=== PATIENT | male | born 1955 | race Caucasian/White ===

== ENCOUNTER → 2017-06-19 | Outpatient (CLI) | payer OTHER ==
--- NOTE | 2017-06-19 15:22 | RAD ---
EXAM DESCRIPTION: Lumbar Spine 3 Views CLINICAL HISTORY: LOW BACK PAIN COMPARISON: MRI scan lumbar spine on the same visit. TECHNIQUE: AP, lateral radiographs of the entire lumbar spine. Spot-lateral radiograph of the lumbar sacral junction. FINDINGS: Lumbar type vertebra: 5. Transitional vertebrae: None. Disk spaces: Narrowing and endplate irregularities at L5-S1, L4-5, L3-4, and L1-2. Apparent disc calcification at L3-4. Endplate spurs at T12-L1 and L2-3. Facet joints: Bilateral facet arthrosis L5-S1. Compression deformities: None. Bone Density: Normal. Alignment: Trace retrolisthesis L3-4, decreased lordosis. Otherwise unremarkable. Abdomen: Nonspecific bowel gas pattern. IMPRESSION: Spondylosis at almost every level of the lumbar spine. Decreased lumbar lordosis. No compression type vertebral body fractures. Electronically signed by: Radames Parikh MD 06/19/2017 3:21 PM [facility]
--- NOTE | 2017-06-19 16:41 | MRI ---
EXAM DESCRIPTION: Lumbar Spine w/o Contrast MRI. CLINICAL HISTORY: LOW BACK PAIN COMPARISON: Lumbosacral radiographs on the same visit. TECHNIQUE: Multiplanar, multiple standard sequences, non contrast MRI, lumbar spine. FINDINGS: L5-S1: Trace retrolisthesis 2 mm with 3 mm bulge of the disc which is desiccated abutting the thecal sac. Bilateral subarticular recesses are patent with mild canal narrowing. Bilateral mild facet arthrosis and flavum ligament hypertrophy abutting the posterior thecal sac and the descending bilateral S1 nerve roots above the recess. Bilateral Modic type II endplate reactive changes. Disc osteophyte complex bilaterally encroaching on the foramina more on the left than the right with bilateral stenosis and probable impingement exiting L5 nerves. L4-5: Moderate loss of disc space with disc desiccation and anterior bulging and endplate ridging. Posterior broad-based 4 mm disc bulge abutting the thecal sac. Flavum ligament hypertrophy and facet arthrosis contributing to bilateral subarticular stenosis encroaching on the descending bilateral L5 nerve roots. AP canal diameter 8 mm. Left side Modic type II endplate reactive changes with disc spur complex encroaching on the left foramen and left L4 nerve root and borderline foraminal stenosis. Moderate to severe right foraminal narrowing. L3-4 disc space almost absent with anterior endplate ridging, almost forming a bridge. Posterior broad-based endplate spurs abutting the thecal sac. Posterior facet arthrosis and flavum ligament hypertrophy contributing to mild to moderate canal narrowing. Bilateral mild foraminal narrowing more right than left with right side Modic type II endplate reactive changes and disc spur complex abutting the exiting right L3 nerve. L2-3 disc desiccation minimal anterior bulge and endplate ridging. Posterior midline and left paracentral 7 mm protrusion and superior 14 mm extrusion. This is impinging the descending left L2 nerve above the left foramen. Disc also bulging into the foramen abutting the nerve. Bilateral moderate facet arthrosis and flavum ligament hypertrophy with central AP canal diameter 5 mm. Disc is abutting the bilateral descending L3 nerves above the subarticular recess; right recess stenosis. Right foramen patent. Well-circumscribed bright T1 and T2 signal in the superior lateral right L3 endplate. L1-2: Disc desiccation and moderate disc space loss. Posterior Modic type II endplate reactive changes superior L2 endplate. Posterior midline and right paracentral 6 mm protrusion of the disc encroaching on the thecal sac and the right subarticular recess, and the descending right S2 nerve. Midline AP canal diameter 6 mm. Facet arthrosis and ligament hypertrophy more on the left. Left foramen is patent. Right posterior Modic type II endplate reactive changes and inferior L1 Schmorl's node. Minimal disc-osteophyte bulge into the right foramen with minimal narrowing. T12-L1: Disc desiccation and posterior disc space loss. Posterior broad-based 4 mm disc bulge abutting the thecal sac and the conus which terminates at this level. Bilateral facet arthrosis and mild ligament hypertrophy contributing to mild to moderate canal stenosis. Mild bilateral foraminal narrowing more on the right than left. Focal bright T1 and T2 signal inferior left L1 endplate. Paravertebral soft tissues minimal muscle atrophy.. Normal marrow signal in the remaining vertebral bodies and the posterior elements. Vertebral bodies are not compressed at any level. IMPRESSION: 1. Multiple levels of spondylosis, facet arthrosis and posterior flavum ligament hypertrophy, disc desiccation bulging or herniated discs. 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 2. Moderate spondylosis L5-S1. Trace retrolisthesis. Bilateral discs spur complexes encroaching on the foramina with stenosis more left than right and bilateral L5 nerve impingement. 3. Posterior L4-5 broad-based disc bulge. Bilateral subarticular stenosis encroaching on the descending bilateral L5 nerve roots. Mild to moderate canal stenosis. Left side Disc spur complex encroaching on the foramen and left L4 nerve root. 4. Disc space almost absent at L3-4 with advanced spondylosis. Moderate right spondylosis encroaching on the foramen and abutting the exiting right L3 nerve. 5. Posterior midline and left paracentral L2-3 disc protrusion and superior extrusion encroaching on the descending left L2 nerve above the foramen. Severe central canal stenosis and stenosis of the right subarticular recess, encroaching on the descending right L3 nerve. 6. Posterior midline and right paracentral L1-2 disc protrusion encroaching on the thecal sac with right subarticular recess stenosis and impingement of the descending right L2 nerve. Severe canal stenosis. Right side spondylosis and narrowing of the foramen. Moderate canal narrowing T12-L1 with conus terminating at this level, bulging disc abuts the conus. Electronically signed by: Radames Parikh MD 06/19/2017 4:41 PM [facility]
== END ==
LOC: RAD 08:41
PROVIDERS: ATTEND Orthopaedic Surgery
DX: M51.26 Other intervertebral disc displacement, lumbar region (principal); M47.896 Other spondylosis, lumbar region